=== PATIENT | female | born 1980 ===

== ENCOUNTER 2017-09-23 09:55 | Outpatient (CLI) | payer OTHER ==
[~2017-09-23] VITALS: Ht 152.4 cm; Wt 67.1 kg
== END 2017-09-23 10:15 | disposition home or self-care (01) ==
LOC: OFIC 805 09:55
DX: H80.83 Other otosclerosis, bilateral (principal); H90.6 Mixed conductive and sensorineural hearing loss, bilateral; H69.83 Other specified disorders of Eustachian tube, bilateral